=== PATIENT | female | born 1935 | race African-American/Black ===

== ENCOUNTER → 2019-05-07 | Outpatient (CLI) | payer MEDICARE, MEDICAID ==
[~2019-05-07] MED LIST: AMLO5TAB88 PO; FURO-152 PO; SPIR25TA6 PO
== END | disposition home or self-care (01) ==
LOC: RAD 16:25
PROVIDERS: ATTEND Specialist
DX: J44.9 Chronic obstructive pulmonary disease, unspecified (principal); I51.7 Cardiomegaly; J90 Pleural effusion, not elsewhere classified
CPT/HCPCS: 71046

== ENCOUNTER 2019-05-08 15:38 | Inpatient (IN) | payer MEDICARE, MEDICAID ==
[~2019-05-08] VITALS: Ht 165.1 cm; Wt 92.3 kg
[2019-05-08] MEDS ORDERED: SPIRONOLACTONE 25MG TABLET PO SCH (16:45)
[2019-05-08] MEDS ORDERED: LOSARTAN POTASSIUM 25 MG TABLET PO SCH (16:45)
[2019-05-08] MEDS ORDERED: FUROSEMIDE 20MG/2ML VIAL IVP SCH (16:45)
[2019-05-08 16:49] LABS: CHLORIDE 104 mEq/L (98-107)
[2019-05-08 16:51] LABS: INR 1.1; PROTHROMBIN TIME 11.7 sec (9.6-11.0)
[2019-05-08 16:55] LABS: BASOPHILS % 0.8 % (0.0-2.0); EOSINOPHILS % 1.2 % (0.0-5.0); HEMATOCRIT. 30.9 % (36.0-48.0); HEMOGLOBIN. 10.7 g/dL (12.0-16.0); MEAN CORPUSCULAR HEMOGLOBIN 30.5 pg (28.0-32.0); MEAN CORPUSCULAR VOLUME 88.4 fL (81.0-99.0); MEAN PLATELET VOLUME 9.2 fl (7.4-10.4); PLATELET 156 x1000/uL (130-400); RED CELL DISTRIBUTION WIDTH 15.8 % (11.6-14.6)
[2019-05-08] MEDS ORDERED: ZOLPIDEM TARTRATE 5MG TABLET PO PRN (22:00)
[2019-05-08] MEDS: AMLODIPINE 5MG TABLET PO SCH (22:00)
[2019-05-08 22:25] VITALS: BP 152/95
[2019-05-08] MEDS: SPIRONOLACTONE 25MG TABLET PO SCH (22:30)
[2019-05-08 23:40] VITALS: BP 141/78
[2019-05-09] VITALS (22 sets, daily range): BP systolic 110–167; BP diastolic 72–101
[2019-05-09] MEDS ORDERED: AMLO5TAB88 PO (01:34)
[2019-05-09] MEDS ORDERED: FURO-152 PO (01:34)
[2019-05-09] MEDS ORDERED: SPIR25TA6 PO (01:34)
[2019-05-09 07:01] LABS: BASOPHILS % 0.8 % (0.0-2.0); HEMATOCRIT. 28.4 % (36.0-48.0); HEMOGLOBIN. 9.5 g/dL (12.0-16.0); LYMPHOCYTES % 25.2 % (20.0-50.0); MEAN CORPUSCULAR HEMOGLOBIN 29.2 pg (28.0-32.0); MEAN CORPUSCULAR VOLUME 87.2 fL (81.0-99.0); MEAN PLATELET VOLUME 9.7 fl (7.4-10.4); MONOCYTES % 9.6 % (2.0-8.0); NEUTROPHILS % 62.4 % (40.0-76.0); PLATELET 141 x1000/uL (130-400); RED BLOOD CELL COUNT 3.26 mill/uL (4.2-5.4); RED CELL DISTRIBUTION WIDTH 15.3 % (11.6-14.6)
[2019-05-09] MEDS: AMLODIPINE 5MG TABLET PO SCH ×3 (09:00→22:36)
[2019-05-09] MEDS ORDERED: POTASSIUM CHLORIDE 20MEQ TABLET SR PO SCH (09:00)
[2019-05-09] MEDS: LOSARTAN POTASSIUM 25 MG TABLET PO SCH ×2 (09:00→13:50)
[2019-05-09] MEDS: FUROSEMIDE 20MG/2ML VIAL IVP SCH ×2 (09:00→10:27)
[2019-05-09] MEDS: SPIRONOLACTONE 25MG TABLET PO SCH (09:00)
[2019-05-09] MEDS ORDERED: LOSARTAN POTASSIUM 25 MG TABLET PO SCH (09:00)
[2019-05-09] MEDS ORDERED: LORAZEPAM 0.5MG TABLET PO PRN (09:30)
[2019-05-09] MEDS: POTASSIUM CHLORIDE 20MEQ TABLET SR PO SCH ×2 (17:28→21:20)
[2019-05-10 01:28] VITALS: BP 154/104
[2019-05-10 03:41] VITALS: BP 148/88
[2019-05-10 06:00] VITALS: BP 99/71
[2019-05-10 07:05] LABS: BASOPHILS % 0.6 % (0.0-2.0); EOSINOPHILS % 1.7 % (0.0-5.0); HEMATOCRIT. 32.8 % (36.0-48.0); MEAN CORPUSCULAR HEMOGLOBIN 29.4 pg (28.0-32.0); MEAN CORPUSCULAR VOLUME 87.6 fL (81.0-99.0); MEAN PLATELET VOLUME 9.8 fl (7.4-10.4); NEUTROPHILS % 62.7 % (40.0-76.0); PLATELET 178 x1000/uL (130-400); RED BLOOD CELL COUNT 3.74 mill/uL (4.2-5.4); RED CELL DISTRIBUTION WIDTH 15.4 % (11.6-14.6)
[2019-05-10 08:00] VITALS: BP 129/60
[2019-05-10] MEDS: POTASSIUM CHLORIDE 20MEQ TABLET SR PO SCH (09:09)
[2019-05-10] MEDS: FUROSEMIDE 20MG/2ML VIAL IVP SCH (09:10)
[2019-05-10] MEDS: AMLODIPINE 5MG TABLET PO SCH (09:10)
[2019-05-10] MEDS ORDERED: DOCUSATE SODIUM 250MG CAPSULE PO NR (09:45)
[2019-05-10 10:02] VITALS: BP 120/69
== END 2019-05-10 12:12 | disposition home health service (06) | DRG 308 ==
LOC: ER 15:38 → 3WST 17:44 → EDBEDREQ 17:47 → EDBEDREQTM 17:47 → EDBEDREQSVC 17:47 → ENRESERV 20:35
PROVIDERS: ADMIT Specialist; ATTEND Specialist
PROC: 4B02XSZ Measurement of Cardiac Pacemaker, External Approach (ICD-10-PCS; principal; 2019-05-08)
DX: R00.1 Bradycardia, unspecified (principal); N17.0 Acute kidney failure with tubular necrosis; G47.00 Insomnia, unspecified; F41.9 Anxiety disorder, unspecified; J44.9 Chronic obstructive pulmonary disease, unspecified; I10 Essential (primary) hypertension; E78.5 Hyperlipidemia, unspecified; E78.00 Pure hypercholesterolemia, unspecified; E87.6 Hypokalemia; Z91.041 Radiographic dye allergy status
CPT/HCPCS: 36415; 71045; 71046; 80048; 80053; 83735; 84484; 85025; 93005; 93306; 99285; J1940

== ENCOUNTER → 2021-10-06 | Outpatient (CLI) | payer MEDICARE, MEDICAID ==
[~2021-10-06] MED LIST changes: -SPIR25TA6 PO
== END | disposition home or self-care (01) ==
LOC: RAD 12:40
PROVIDERS: ATTEND Specialist
DX: R91.8 Other nonspecific abnormal finding of lung field (principal); R06.02 Shortness of breath
CPT/HCPCS: 71046